=== PATIENT | female | born 1940 | race Two or more races ===

== ENCOUNTER 2018-06-16 14:20 | Outpatient (CLI) | payer OTHER | END 2018-06-16 14:23 | disposition home or self-care (01) | LOC: MAMO-SONO 14:20 | DX: Z12.31 Encounter for screening mammogram for malignant neoplasm of breast (principal); Z87.898 Personal history of other specified conditions; N60.11 Diffuse cystic mastopathy of right breast ==

== ENCOUNTER 2019-05-22 08:00 | Outpatient (CLI) | payer OTHER | END 2019-05-22 15:00 | disposition home or self-care (01) | LOC: LAB 08:00 | DX: D50.0 Iron deficiency anemia secondary to blood loss (chronic) (principal); E78.00 Pure hypercholesterolemia, unspecified; E11.69 Type 2 diabetes mellitus with other specified complication; E55.9 Vitamin D deficiency, unspecified; E03.8 Other specified hypothyroidism ==

== ENCOUNTER 2019-05-25 13:47 | Outpatient (CLI) | payer OTHER | END 2019-05-25 13:56 | disposition home or self-care (01) | LOC: SONOGRAMA 13:47 | DX: E04.2 Nontoxic multinodular goiter (principal); N18.3 Chronic kidney disease, stage 3 (moderate) ==

== ENCOUNTER 2019-05-26 13:49 | Outpatient (CLI) | payer OTHER | END 2019-05-26 13:51 | disposition home or self-care (01) | LOC: NUCLEAR 13:49 | DX: E05.90 Thyrotoxicosis, unspecified without thyrotoxic crisis or storm (principal); I11.0 Hypertensive heart disease with heart failure ==

== ENCOUNTER 2019-05-28 15:58 | Inpatient (IN) | payer OTHER ==
[2019-05-29] MEDS ORDERED: OXYBUTYNIN CHLO10 MG (08:15)
[2019-05-29] MEDS ORDERED: PROPRANOLOL HCL10 MG PO (08:15)
[2019-05-29] MEDS ORDERED: IRBESARTAN150 MG PO (08:16)
[2019-05-29] MEDS ORDERED: ATIVAN0.5 MG (08:16)
[2019-05-29] MEDS ORDERED: SIMVASTATIN20 MG PO (08:16)
[2019-05-29] MEDS ORDERED: ATENOLOL50 MG PO (08:16)
[2019-06-03] MEDS ORDERED: ELIQUIS2.5 MG PO (09:43)
[2019-06-03] MEDS ORDERED: FLAGYL500MG PO (09:43)
[2019-06-03] MEDS ORDERED: CARDIZEM CD180 MG PO (09:44)
[2019-06-03] MEDS ORDERED: AVAPRO300 MG PO (09:44)
[2019-06-03] MEDS ORDERED: FOLIC ACID1 MG PO (09:45)
[2019-06-03] MEDS ORDERED: Vitamin B-6 PO (09:45)
== END 2019-06-03 14:27 | disposition home or self-care (01) | DRG 288 ==
LOC: MEDI 15:58 → SURG 15:59
PROVIDERS: ADMIT Internal Medicine
PROC: 4A12X4Z Monitoring of Cardiac Electrical Activity, External Approach (ICD-10-PCS; 2019-05-28)
PROC: B246ZZZ Ultrasonography of Right and Left Heart (ICD-10-PCS; principal; 2019-05-30)
DX: I33.0 Acute and subacute infective endocarditis (principal); I50.21 Acute systolic (congestive) heart failure; E05.81 Other thyrotoxicosis with thyrotoxic crisis or storm; I13.0 Hypertensive heart and chronic kidney disease with heart failure and stage 1 through stage 4 chronic kidney disease, or unspecified chronic kidney disease; N17.8 Other acute kidney failure; N39.0 Urinary tract infection, site not specified; M51.36 Other intervertebral disc degeneration, lumbar region; I07.2 Rheumatic tricuspid stenosis and insufficiency; N39.41 Urge incontinence; N18.2 Chronic kidney disease, stage 2 (mild); D63.1 Anemia in chronic kidney disease; I11.0 Hypertensive heart disease with heart failure; I48.0 Paroxysmal atrial fibrillation; Z79.01 Long term (current) use of anticoagulants

== ENCOUNTER 2019-07-06 13:24 | Outpatient (CLI) | payer OTHER ==
[~2019-07-06 13:24] MED LIST: ATENOLOL50 MG PO; ATIVAN0.5 MG; AVAPRO300 MG PO; CARDIZEM CD180 MG PO; ELIQUIS2.5 MG PO; FLAGYL500MG PO; FOLIC ACID1 MG PO; IRBESARTAN150 MG PO; OXYBUTYNIN CHLO10 MG; PROPRANOLOL HCL10 MG PO; SIMVASTATIN20 MG PO; Vitamin B-6 PO
== END 2019-07-06 14:19 | disposition home or self-care (01) ==
LOC: MAMO-SONO 13:24
DX: Z12.31 Encounter for screening mammogram for malignant neoplasm of breast (principal); Z87.898 Personal history of other specified conditions; N60.11 Diffuse cystic mastopathy of right breast

== ENCOUNTER 2019-12-05 08:32 | Outpatient (CLI) | payer OTHER | END 2019-12-05 08:38 | disposition home or self-care (01) | LOC: RAD 08:32 | DX: J44.1 Chronic obstructive pulmonary disease with (acute) exacerbation (principal); N18.3 Chronic kidney disease, stage 3 (moderate); E05.90 Thyrotoxicosis, unspecified without thyrotoxic crisis or storm; E11.69 Type 2 diabetes mellitus with other specified complication; E78.00 Pure hypercholesterolemia, unspecified; I11.9 Hypertensive heart disease without heart failure ==

== ENCOUNTER 2019-12-07 13:28 | Inpatient (IN) | payer OTHER ==
[~2019-12-07] VITALS: Ht 170.2 cm; Wt 66.2 kg
[2019-12-07] MEDS ORDERED: SYNTHROID50 MCG PO (13:59)
[2019-12-07] MEDS ORDERED: ELIQUIS5 MG PO (14:00)
[2019-12-07] MEDS ORDERED: DILTIAZEM ER180 M3 (14:00)
[2019-12-07] MEDS ORDERED: INDERAL PO (14:01)
[2019-12-16] MEDS ORDERED: INDERAL XL80 MG PO (08:34)
== END 2019-12-18 14:53 | disposition home or self-care (01) | DRG 743 ==
LOC: OB/GYN 12-16 06:30 → O/R 12-16 06:30 → SURH 12-16 07:30 → OB/GYN 12-16 12:07 → SURH 12-16 13:28 → OB/GYN 12-18 14:53
PROVIDERS: Urology; ADMIT Obstetrics & Gynecology
PROC: 0TSD0ZZ Reposition Urethra, Open Approach (ICD-10-PCS; 2019-12-16)
PROC: 0UT97ZZ Resection of Uterus, Via Natural or Artificial Opening (ICD-10-PCS; principal; 2019-12-16 07:30)
PROC: 0JQC0ZZ Repair Pelvic Region Subcutaneous Tissue and Fascia, Open Approach (ICD-10-PCS; 2019-12-16 07:30)
DX: N81.3 Complete uterovaginal prolapse (principal); D25.1 Intramural leiomyoma of uterus; N39.46 Mixed incontinence

== ENCOUNTER 2020-02-29 12:50 | Outpatient (CLI) | payer OTHER ==
[~2020-02-29 12:50] MED LIST changes: +DILTIAZEM ER180 M3; +ELIQUIS5 MG PO; +INDERAL PO; +INDERAL XL80 MG PO; +SYNTHROID50 MCG PO
== END 2020-02-29 13:01 | disposition home or self-care (01) ==
LOC: TOM 12:50
PROVIDERS: ATTEND Internal Medicine Cardiovascular Disease
DX: I50.22 Chronic systolic (congestive) heart failure (principal)

== ENCOUNTER 2020-03-03 10:39 | Outpatient (CLI) | payer OTHER | END 2020-03-03 10:51 | disposition home or self-care (01) | LOC: NUCLEAR 10:39 | PROVIDERS: ATTEND Internal Medicine Cardiovascular Disease | DX: G45.8 Other transient cerebral ischemic attacks and related syndromes (principal); E11.9 Type 2 diabetes mellitus without complications; R42 Dizziness and giddiness ==

== ENCOUNTER 2020-03-15 07:30 | Outpatient (CLI) | payer OTHER | END 2020-03-15 07:36 | disposition home or self-care (01) | LOC: NUCLEAR 07:30 | PROVIDERS: ATTEND Internal Medicine Cardiovascular Disease | DX: I50.22 Chronic systolic (congestive) heart failure (principal); I25.10 Atherosclerotic heart disease of native coronary artery without angina pectoris | CPT/HCPCS: 78452; 93017; A9500; J0153 ==

== ENCOUNTER 2020-03-29 13:12 | Outpatient (CLI) | payer OTHER | END 2020-03-29 13:19 | disposition home or self-care (01) | LOC: TOM 13:12 | PROVIDERS: ATTEND Obstetrics & Gynecology | DX: M25.512 Pain in left shoulder (principal) ==

== ENCOUNTER 2020-05-31 11:22 | Outpatient (CLI) | payer OTHER | END 2020-05-31 11:34 | disposition home or self-care (01) | LOC: MRI 11:22 | PROVIDERS: ATTEND Orthopaedic Surgery | DX: M25.412 Effusion, left shoulder (principal); M75.42 Impingement syndrome of left shoulder | CPT/HCPCS: 73223; A9575; 73221 ==

== ENCOUNTER 2020-09-07 13:10 | Outpatient (CLI) | payer OTHER | END 2020-09-07 13:32 | disposition HB | LOC: MAMO-SONO 13:10 | DX: E04.1 Nontoxic single thyroid nodule (principal); N60.11 Diffuse cystic mastopathy of right breast; Z12.31 Encounter for screening mammogram for malignant neoplasm of breast ==

== ENCOUNTER 2021-09-12 11:50 | Outpatient (CLI) | payer OTHER | END 2021-09-12 11:54 | disposition home or self-care (01) | LOC: MAMO-SONO 11:50 | PROVIDERS: ATTEND Obstetrics & Gynecology | DX: N60.11 Diffuse cystic mastopathy of right breast (principal); Z12.31 Encounter for screening mammogram for malignant neoplasm of breast ==

== ENCOUNTER 2021-09-21 11:19 | Outpatient (CLI) | payer OTHER | END 2021-09-21 11:31 | disposition home or self-care (01) | LOC: MRI 11:19 | PROVIDERS: ATTEND Orthopaedic Surgery | DX: M75.42 Impingement syndrome of left shoulder (principal); M19.012 Primary osteoarthritis, left shoulder | CPT/HCPCS: 73218 ==

== ENCOUNTER 2021-10-19 11:18 | Outpatient (CLI) | payer OTHER | END 2021-10-19 11:19 | disposition home or self-care (01) | LOC: NUCLEAR 11:18 | PROVIDERS: ATTEND Internal Medicine Endocrinology, Diabetes & Metabolism | DX: M81.0 Age-related osteoporosis without current pathological fracture (principal) ==

== ENCOUNTER 2021-12-07 08:00 | Outpatient (CLI) | payer OTHER | END 2021-12-07 08:30 | disposition home or self-care (01) | LOC: PPH VACUNA 08:00 | PROVIDERS: ATTEND Emergency Medicine Pediatric Emergency Medicine | DX: Z23 Encounter for immunization (principal) ==

== ENCOUNTER 2021-12-21 09:17 | Outpatient (CLI) | payer OTHER | END 2021-12-21 09:24 | disposition home or self-care (01) | LOC: SONOGRAMA 09:17 | PROVIDERS: ATTEND Internal Medicine Nephrology | DX: N18.30 Chronic kidney disease, stage 3 unspecified (principal) ==

== ENCOUNTER 2023-07-01 11:49 | Outpatient (CLI) | payer OTHER | END 2023-07-01 12:03 | disposition home or self-care (01) | LOC: SONOGRAMA 11:49 | PROVIDERS: ATTEND Internal Medicine | DX: E03.9 Hypothyroidism, unspecified (principal) ==

== ENCOUNTER 2023-08-05 11:11 | Outpatient (CLI) | payer OTHER | END 2023-08-05 13:40 | disposition home or self-care (01) | LOC: MAMO-SONO 11:11 | PROVIDERS: ATTEND Obstetrics & Gynecology | DX: N60.11 Diffuse cystic mastopathy of right breast (principal); I48.91 Unspecified atrial fibrillation; I48.92 Unspecified atrial flutter; Z12.31 Encounter for screening mammogram for malignant neoplasm of breast; R51.9 Headache, unspecified; S09.8XXA Other specified injuries of head, initial encounter ==

== ENCOUNTER 2024-05-14 12:26 | Outpatient (CLI) | payer OTHER | END 2024-05-14 12:34 | disposition home or self-care (01) | LOC: TOM 12:26 | PROVIDERS: ATTEND Internal Medicine | DX: I48.91 Unspecified atrial fibrillation (principal); I10 Essential (primary) hypertension; R41.3 Other amnesia ==